=== PATIENT | male | born 1990 | race Asian ===

== ENCOUNTER → 2021-04-16 | Outpatient (CLI) | payer SELFPAY ==
[~2021-04-16] MED LIST: OMEP40CA4 PO; PANT40TA29
== END ==
LOC: M LABSMTC 12:43
PROVIDERS: ATTEND Anesthesiology
DX: Z20.828 Contact with and (suspected) exposure to other viral communicable diseases (principal); Z11.59 Encounter for screening for other viral diseases

== ENCOUNTER 2021-04-21 13:47 | Day surgery (SDC) | payer BC ==
[~2021-04-21] VITALS: Ht 175.3 cm; Wt 81.6 kg
[~2021-04-21 13:47] MED LIST changes: +NS 1,000 ML IV ONE
[2021-04-21] MEDS ORDERED: fentaNYL 100 MCG/2 ML INJECTION As Ordered ONE (15:13)
[2021-04-21] MEDS ORDERED: propofoL 200 MG/20 ML VIAL As Ordered ONE (15:13)
[2021-04-21] MEDS ORDERED: LIDOCAINE 2% 100MG/5ML SDV (FOR ANES.) As Ordered ONE (15:13)
[2021-04-21 15:47] VITALS: BP 125/79
== END 2021-04-21 15:56 | disposition home or self-care (01) ==
LOC: M OPP 13:47
PROVIDERS: ATTEND Internal Medicine Gastroenterology
DX: K21.00 Gastro-esophageal reflux disease with esophagitis, without bleeding (principal); K29.70 Gastritis, unspecified, without bleeding; R12 Heartburn; Z91.013 Allergy to seafood; Z91.010 Allergy to peanuts
CPT/HCPCS: 43239; 88305; 88342; J3010